=== PATIENT | female | born 2000 | race Caucasian/White ===

== ENCOUNTER 2022-02-20 13:44 | Emergency (ER) | payer OTHER, SELFPAY ==
[2022-02-20 13:54] VITALS: BP 152/84; PULSE 86; RESP 16; TEMP 36.6; O2SAT 100
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
--- NOTE | 2022-02-20 14:55 | PC.NURSE ---
this patient was referred to [facility] ED for further evaluation and treatment/ exam by a [facility] nurse. she has no medical c/o or injury noted, she is tearful
== END 2022-02-20 14:33 | disposition short-term general hospital (02) ==
PROVIDERS: Emergency Provider Nurse Practitioner
DX: Z04.89 Encounter for examination and observation for other specified reasons (principal)
CPT/HCPCS: 99212; G0463

== ENCOUNTER 2022-02-20 15:09 | Emergency (ER) | payer OTHER, SELFPAY ==
[2022-02-20 15:25] VITALS: BP 144/94; PULSE 98; RESP 18; TEMP 36.6; O2SAT 98
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
--- NOTE | 2022-02-20 16:07 | PC.NURSE ---
Janice DAMON and Darline DAMON arrived for [facility], in pt room at this time.
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
--- NOTE | 2022-02-20 17:07 | PC.NURSE ---
HEAD TENNIS COACH to desk requesting speculum for exam and a bottle of sterile water - given to RN as requested
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
[2022-02-20] MEDS: levonorgestreL 1.5 MG TABLET PO (18:57)
[2022-02-20] MEDS: ONDANSETRON HCL ODT 4 MG TABLET PO (18:57)
[2022-02-20 19:26] VITALS: BP 137/94; PULSE 102; RESP 18; O2SAT 99
== END 2022-02-20 19:28 | disposition home or self-care (01) ==
LOC: ANHED 18:36
PROVIDERS: Emergency Provider Emergency Medicine
DX: Z04.41 Encounter for examination and observation following alleged adult rape (principal)
CPT/HCPCS: 81025; 99285; A9270